=== PATIENT | male | born 1990 | race Caucasian/White ===

== ENCOUNTER 2020-07-08 15:34 | Observation (INO) ==
[2020-07-08] MEDS ORDERED: ONDANSETRON 4 MG/2 ML VIAL IV STA (16:24)
[2020-07-08] MEDS ORDERED: SODIUM CHLORIDE 0.9% 1,000 ML IV STA ×2 (16:24→16:32)
[2020-07-08] MEDS ORDERED: HYDROmorphone 2 MG/1 ML VIAL IV STA ×2 (16:24→16:50)
[2020-07-08 17:00] LABS: Basophils # 0.1 10*3/uL (0.0-0.2); Basophils % 1.2 % (0.0-0.8); Eosinophils # 0.1 10*3/uL (0.0-0.87); Eosinophils % 1.2 % (0.00-10.9); Hemoglobin 14.5 GM/DL (14.0-18.0); Immature Granulocytes % 0.1 %; Immature Granulocytes Absolute 0.01 #; Lymphocytes # 2.5 10*3/uL (1.4-4.0); Lymphocytes % 36.6 % (21.2-54.2); Mean Corpuscular HGB Conc 34.5 GM/DL (32-36); Mean Corpuscular Volume 81.9 FL (87-102); Mean Platelet Volume 10.7 FL (9.6-12.0); Monocytes % 7.4 % (1.7-12.7); Neutrophils % 53.5 % (38.7-73.9); Platelet Count 280 T/CUMM (130-400); Red Blood Count 5.13 MC/CUMM (3.8-5.5); Red Cell Distribution Width 13.1 % (9.3-17.3); White Blood Count 6.8 T/CUMM (4-12)
[2020-07-08 17:08] LABS: Albumin 4.7 G/DL (3.4-5.0); Bilirubin,Total 0.7 MG/DL (0.2-1.0); Calcium 9.5 MG/DL (8.5-10.1); Osmolality,Calculated 278.5 MOS/KG (273-304); Potassium 3.6 MMOL/L (3.5-5.1); Total Protein 8.2 G/DL (6.4-8.3)
[2020-07-08 18:06] LABS: Bilirubin,Urine Negative (Negative); Blood, Urine Negative (Negative); Glucose,Urine (UA) Negative (Negative); Ketones,Urine Negative (Negative); Mucus,Urine Moderate /LPF (Occasional); Nitrite,Urine Positive (Negative); Protein,Urine Negative; RBC,Urine 3 /HPF (0-4); Urine Appearance CLEAR (Clear); Urine Color Amber (Yellow); Urine Specific Gravity 1.017 (1.001-1.035); WBC,Urine 2 /HPF (0-6)
[2020-07-08] MEDS ORDERED: ONDANSETRON 4 MG/2 ML VIAL IV PRN (18:48)
[2020-07-08] MEDS ORDERED: GLUCAGON 1 MG VIAL IM PRN (18:48)
[2020-07-08] MEDS ORDERED: DEXTROSE 50% 25 GM/50 ML VIAL IV PRN (18:48)
[2020-07-08] MEDS: MORPHINE 4 MG/1 ML VIAL IV PRN (22:09)
[2020-07-08] MEDS: SODIUM CHLORIDE 0.9% 1,000 ML IV SCH (22:10)
[2020-07-09] MEDS: SODIUM CHLORIDE 0.9% 1,000 ML IV SCH (04:31)
[2020-07-09] MEDS: MORPHINE 4 MG/1 ML VIAL IV PRN ×2 (05:19→08:41)
[2020-07-09 05:37] LABS: Basophils # 0.1 10*3/uL (0.0-0.2); Basophils % 0.6 % (0.0-0.8); Eosinophils # 0.2 10*3/uL (0.0-0.87); Eosinophils % 2.5 % (0.00-10.9); Hematocrit 41.2 VOL% (42.0-52.0); Hemoglobin 13.4 GM/DL (14.0-18.0); Immature Granulocytes % 0.4 %; Immature Granulocytes Absolute 0.03 #; Lymphocytes % 36.7 % (21.2-54.2); Mean Corpuscular HGB Conc 32.5 GM/DL (32-36); Mean Corpuscular Volume 86.9 FL (87-102); Mean Platelet Volume 10.4 FL (9.6-12.0); Monocytes % 7.4 % (1.7-12.7); Neutrophils % 52.4 % (38.7-73.9); Platelet Count 246 T/CUMM (130-400); Red Blood Count 4.74 MC/CUMM (3.8-5.5); Red Cell Distribution Width 13.2 % (9.3-17.3); White Blood Count 8.1 T/CUMM (4-12)
[2020-07-09 06:03] LABS: Calcium 8.8 MG/DL (8.5-10.1); Osmolality,Calculated 283.1 MOS/KG (273-304); Potassium 4.6 MMOL/L (3.5-5.1)
[2020-07-09 07:21] VITALS: BP 140/83
[2020-07-09] MEDS: cefTRIAXone 1,000 MG in SYRINGE 1 EACH IV SCH ×2 (07:54→07:57)
[2020-07-09] MEDS ORDERED: PANTOPRAZOLE 40 MG TABLET PO SCH (09:00)
== END 2020-07-09 10:20 | disposition home or self-care (01) ==
LOC: N.3E 15:34 → N.ED 15:34 → N.3E 21:13
PROVIDERS: ADMIT Emergency Medicine; ATTEND Emergency Medicine